=== PATIENT | female | born 2000 | race Caucasian/White ===

== ENCOUNTER 2022-07-04 05:00 | Emergency (ER) | payer OTHER ==
[2022-07-04] MEDS ORDERED: SODIUM CHLORIDE 0.9% 1,000 ML IV STA (05:32)
[2022-07-04] MEDS ORDERED: KETOROLAC 15 MG/ML VIAL IVP STA (05:32)
[2022-07-04] MEDS ORDERED: diphenhydrAMINE INJ 50 MG/ML VIAL IVP STA (05:33)
[2022-07-04] MEDS ORDERED: METOCLOPRAMIDE 10 MG/2 ML VIAL IVP STA (05:33)
[2022-07-04] MEDS ORDERED: ACETAMINOPHEN 325 MG TABLET PO STA (05:33)
[2022-07-04] MEDS ORDERED: SUMAtriptan 6 MG/0.5 ML VIAL SUBQ STA (05:36)
--- NOTE | 2022-07-04 05:37 | ED Physician Documentation ---
History of Present Illness - Stated complaint Stated Complaint: MIGRANE - Chief complaint Chief Complaint: Neuro - History obtained from History obtained from: Patient - Additonal information Additional information: 22-year-old woman with past medical history of depression, anxiety, ADHD, PTSD, noncompliant with medications, presents with intermittent headache with 1 or both eyes over the past week however occurring at least twice daily, increasing in severity and waking her from sleep most recently at 3 AM tonight. Patient states she is hyperalgesia with touching the area around the eye.Denies vision changes, focal neurological deficit. Review of Systems Constitutional: denies: Fever Eyes: reports: Photophobia. denies: Loss of vision Musculoskeletal: denies: Neck pain Neurologic: reports: Headache PD PAST MEDICAL HISTORY - Past Medical History Past Medical History: Yes Psych: Depression, Anxiety, Bipolar disorder, ADD/ADHD, Post traumatic stress disorder - Past Surgical History Past Surgical History: No - Present Medications Home Medications: Ambulatory Orders Medication Instructions Recorded Confirmed Fluoxetine HCl [Prozac] 40 mg PO DAILY 12/11/21 07/04/22 Verapamil [Calan] 80 mg PO TID #90 tablet 07/04/22 predniSONE [Prednisone 21-TAB dose 60 mg PO QDAC 6 Days #21 tab 07/04/22 pack] - Allergies Allergies/Adverse Reactions: Allergies Allergy/AdvReac Type Severity Reaction Status Date / Time No Known Drug Allergies Allergy Verified 07/04/22 05:18 - Social History Does the pt smoke?: No Smoking Status: Never smoker Does the pt drink ETOH?: Yes - Immunizations Immunizations are current?: Yes - POLST Patient has POLST: No PD ED PE NORMAL - Vitals Vital signs reviewed: Yes - General General: Alert and oriented X 3, No acute distress, Well developed/nourished - HEENT HEENT: Atraumatic, PERRL, EOMI, Moist mucous membranes, Pharynx benign - Neck Neck: Supple, no meningeal sign - Neuro Neuro: Alert and oriented X 3, retail special event associate 2-12 intact, No motor deficit, No sensory deficit, Normal speech Results - Vitals Vitals: Vital Signs - 24 hr 07/04/22 05:20 Temperature 37.1 C Heart Rate 70 Respiratory 16 Rate Blood Pressure 141/83 H O2 Saturation 99 Oxygen O2 Source Room air PD Medical Decision Making - ED course ED course: 22-year-old woman presents with symptoms concerning for cluster headache. Symptomatic care provided in the emergency department with improvement. Patient will be discharged home on steroid taper and verapamil for empiric treatment of cluster headache. Plan to follow-up with primary care provider. Return precautions given. Departure - Departure Clinical Impression: Cluster headache Condition: Stable Instructions: ED Headache Cluster Prescriptions: Verapamil [Calan] 80 mg PO TID #90 tablet predniSONE [Prednisone 21-TAB dose pack] 60 mg PO QDAC 6 Days #21 tab Comments: You are seen in the emergency department for cluster headache. Please follow-up with your primary care provider. Medications for cluster headache [place] [facility] [place] You should start to see an improvement within 2-3 weeks with verapamil. You should taper down on the verapamil over time before stopping it. Make sure that you follow-up with your primary care provider to discuss a plan for cluster headache management and medication management.
[2022-07-04 06:37] VITALS: BP 127/87
== END 2022-07-04 06:37 | disposition home or self-care (01) ==
LOC: ED 05:00
DX: G44.89 Other headache syndrome (principal)
CPT/HCPCS: 96372; 96374; 96375; 99283; A9270; J1200; J2765

== ENCOUNTER 2023-02-12 07:32 | Outpatient (CLI) | payer OTHER ==
[2023-02-12 08:00] LABS: BASOPHILS # (AUTO) 0.1 10^3/uL (0.0-0.1); BASOPHILS % (AUTO) 1.2 %; EOSINOPHILS # (AUTO) 0.2 10^3/uL (0.0-0.7); EOSINOPHILS % (AUTO) 2.4 %; HCT - HEMATOCRIT 40.8 % (37.0-47.0); HGB - HEMOGLOBIN 13.5 g/dL (12.0-16.0); LYMPHOCYTES % (AUTO) 38.2 %; MEAN CORPUSCULAR HEMOGLOBIN 27.6 pg (27.0-31.0); MEAN CORPUSCULAR HGB CONC 33.1 g/dL (32.0-36.0); MEAN CORPUSCULAR VOLUME 83.3 fL (81.0-99.0); MEAN PLATELET VOLUME 9.4 fL (7.9-10.8); MONOCYTES # (AUTO) 0.6 10^3/uL (0.0-1.0); MONOCYTES % (AUTO) 7.2 %; NEUTROPHILS % (AUTO) 50.7 %; PLT - PLATELET COUNT 322 10^3/uL (130-450); RED CELL DISTRIBUTION WIDTH 12.1 % (12.0-15.0); WHITE BLOOD COUNT 7.8 x10^3/uL (4.8-10.8)
[2023-02-12 08:16] LABS: GTT GLUCOSE,FASTING 103 mg/dL (74-109)
[2023-02-12 08:17] LABS: ALBUMIN 4.7 g/dL (3.2-5.5); ALBUMIN/GLOBULIN RATIO 1.6 (1.0-2.2); BILIRUBIN,TOTAL 0.7 mg/dL (0.2-1.0); CALCIUM 9.7 mg/dL (8.5-10.3); CREATININE 0.8 mg/dL (0.6-1.3); POTASSIUM 3.8 mmol/L (3.5-4.5); TOTAL PROTEIN 7.7 g/dL (6.4-8.9)
[2023-02-12 08:29] LABS: THYROID STIMULATING HORMONE 2.02 uIU/mL (0.34-5.60)
[2023-02-12 11:47] LABS: ESTIMATED AVERAGE GLUCOSE 100 mg/dL (70-100); HEMOGLOBIN A1c% 5.1 % (4.27-6.07)
== END 2023-02-12 07:33 | disposition home or self-care (01) ==
LOC: LAB 07:32
PROVIDERS: ATTEND Nurse Practitioner Obstetrics & Gynecology
DX: E28.2 Polycystic ovarian syndrome (principal); F41.9 Anxiety disorder, unspecified
CPT/HCPCS: 36415; 80053; 82951; 83036; 84403; 84439; 84443; 85025

== ENCOUNTER 2023-02-28 14:46 | Outpatient (CLI) | payer OTHER ==
--- NOTE | 2023-03-01 08:27 | Ultrasound Report ---
PROCEDURE: Pelvic w/Transvaginal INDICATIONS: DYSPAREUNIA TECHNIQUE: Real-time scanning was performed of the pelvic organs, with image documentation. Additional endovagi nal scanning was necessary due to incomplete visualization of the adnexal and endometrial structures by transabdominal scanning. COMPARISON: None. FINDINGS: Uterus: Uterus is anteverted and normal in size at 6.7 x 2.9 x 4.8 cm. The myometrium is homogeneou s. The endometrium measures 11.9 mm in combined thickness. Cervix is normal. Ovaries: The right ovary measures 3.3 x 2.0 x 3.1 cm, with a calculated ovarian volume of 10.6 cc. The left ovary measures 3.1 x 1.2 x 1.1 cm, with a calculated ovarian volume of 2.0 cc. The ovaries have a normal sonographic appearance. There is a 1.4 x 1.1 x 1.6 cm corpus luteal cyst in right ovar y. ? more than 12 follicles in each ovary. No adnexal masses are seen. No cystic lesions measuring g reater than 3 cm. Other: No pathologic free abdominal or pelvic fluid. IMPRESSION: 1. A cause for dysmenorrhea is not identified on ultrasound. 2. A corpus luteal cyst in the right ovary. 3. Question more than 12 ovarian follicles in each ovary. Reviewed by: Porter Brady MD on 03/01/2023 8:26 AM PDT Approved by: Porter Brady MD on 03/01/2023 8:26 AM PDT Station ID: [id number]
== END 2023-02-28 14:47 | disposition home or self-care (01) ==
LOC: DI 14:46
PROVIDERS: ATTEND Nurse Practitioner Obstetrics & Gynecology
DX: N94.10 Unspecified dyspareunia (principal); N92.0 Excessive and frequent menstruation with regular cycle; E28.2 Polycystic ovarian syndrome; N83.11 Corpus luteum cyst of right ovary

== ENCOUNTER 2023-05-30 12:32 | Emergency (ER) | payer OTHER ==
[2023-05-30] MEDS ORDERED: KETOROLAC 30 MG/ML VIAL IVP STA (12:54)
[2023-05-30 13:06] LABS: BASOPHILS # (AUTO) 0.1 10^3/uL (0.0-0.1); EOSINOPHILS # (AUTO) 0.1 10^3/uL (0.0-0.7); EOSINOPHILS % (AUTO) 1.1 %; HCT - HEMATOCRIT 42.1 % (37.0-47.0); HGB - HEMOGLOBIN 13.6 g/dL (12.0-16.0); LYMPHOCYTES # (AUTO) 3.2 10^3/uL (1.5-3.5); LYMPHOCYTES % (AUTO) 33.7 %; MEAN CORPUSCULAR HGB CONC 32.3 g/dL (32.0-36.0); MEAN CORPUSCULAR VOLUME 83.5 fL (81.0-99.0); MEAN PLATELET VOLUME 9.6 fL (7.9-10.8); MONOCYTES # (AUTO) 0.7 10^3/uL (0.0-1.0); MONOCYTES % (AUTO) 7.2 %; NEUTROPHILS # (AUTO) 5.3 10^3/uL (1.5-6.6); NEUTROPHILS % (AUTO) 56.9 %; PLT - PLATELET COUNT 336 10^3/uL (130-450); RED BLOOD COUNT 5.04 10^6/uL (4.20-5.40); RED CELL DISTRIBUTION WIDTH 12.6 % (12.0-15.0); WHITE BLOOD COUNT 9.4 x10^3/uL (4.8-10.8)
[2023-05-30] MEDS ORDERED: SODIUM CHLORIDE 0.9% 1,000 ML IV STA (13:42)
[2023-05-30 13:47] LABS: CALCIUM 9.4 mg/dL (8.5-10.3); CREATININE 0.9 mg/dL (0.6-1.3); POTASSIUM 3.4 mmol/L (3.5-4.5)
[2023-05-30] MEDS ORDERED: MORPHINE 2 MG/ML CARPUJECT IVP STA (13:49)
[2023-05-30 14:26] LABS: BILIRUBIN,URINE NEGATIVE (NEGATIVE); GLUCOSE, URINE (UA) NEGATIVE (NEGATIVE); KETONES,URINE (UA) TRACE mg/dL (NEGATIVE); LEUKOCYTE ESTERASE, URINE NEGATIVE (NEGATIVE); NITRITE,URINE NEGATIVE (NEGATIVE); OCCULT BLOOD,URINE NEGATIVE (NEGATIVE); PH,URINE 6.5 PH (5.0-7.5); PROTEIN,URINE NEGATIVE (NEGATIVE); UROBILINOGEN,URINE 0.2 (NORMAL) E.U./dL (NORMAL)
[2023-05-30 14:27] LABS: CLARITY,URINE CLEAR (CLEAR)
[2023-05-30 14:28] LABS: HCG UR QUAL NEGATIVE
--- NOTE | 2023-05-30 15:34 | Ultrasound Report ---
PROCEDURE: Pelvic w/Transvaginal INDICATIONS: left sided pain/IUD placed 1 week ago/cramping TECHNIQUE: Real-time scanning was performed of the pelvic organs, with image documentation. Additional endovagi nal scanning was necessary due to incomplete visualization of the adnexal and endometrial structures by transabdominal scanning. COMPARISON: 02/28/2023 FINDINGS: Uterus: Uterus is anteverted and normal in size at 7.0 x 2.9 x 4.7 cm. The myometrium is homogeneou s. The endometrium measures 12.8 mm in combined thickness. An IUD is in satisfactory position Ovaries: The right ovary measures 1.6 x 1.9 x 1.5 cm, with a calculated ovarian volume of 2.2 cc. T he left ovary measures 3.8 x 1.9 x 1.5 cm, with a calculated ovarian volume of 5.6 cc. The ovaries h ave a normal sonographic appearance. Less than 12 follicles can be seen in each ovary. No adnexal m asses are seen. No cystic lesions measuring greater than 3 cm. There is bilateral intraovarian flow. Other: No pathologic free abdominal or pelvic fluid. IMPRESSION: 1. IUD in satisfactory position. 2. No other significant findings. Reviewed by: Angelito Flores MD on 05/30/2023 3:33 PM PST Approved by: Angelito Flores MD on 05/30/2023 3:33 PM PST Station ID: [id number]
[2023-05-30 15:48] VITALS: BP 142/75
[2023-05-30] MEDS ORDERED: POTASSIUM BICARB 25 MEQ TABLET PO ONE (15:48)
--- NOTE | 2023-05-30 15:50 | ED Physician Documentation ---
PD HPI FEMALE - Stated complaint Stated Complaint: - Chief complaint Chief Complaint: Abd Pain - History obtained from History obtained from: Patient - Additional information Additional information: Patient is a 22-year-old female presenting for evaluation of lower abdominal cramps that been present for the last few hours. Patient Had an IUD placed 1 week ago. She does have a history of PCOS. She reports having increased cramping sensation to the left adnexa. She has tried Tylenol without improvement. Mild vaginal bleeding. No vaginal discharge. Denies concerns for STDs. IUD was placed by nurse credit checker Dora Huber. Review of Systems Constitutional: denies: Fever Cardiac: denies: Chest pain / pressure Respiratory: denies: Dyspnea GI: denies: Abdominal Pain, Vomiting : reports: Dysuria, Vaginal bleeding. denies: Hematuria PD PAST MEDICAL HISTORY - Past Medical History Past Medical History: Yes Cardiovascular: None Respiratory: None Neuro: None Endocrine/Autoimmune: None GI: None MANAGER KNOWLEDGE: None : None HEENT: None Psych: Depression, Anxiety, Bipolar disorder, ADD/ADHD, Post traumatic stress disorder Musculoskeletal: None Derm: None - Past Surgical History Past Surgical History: No - Present Medications Home Medications: Ambulatory Orders Medication Instructions Recorded Confirmed HYDROcod/ACETAM 5/325 [[place] 5/325] 1 tablet PO Q6H PRN #6 tablet 05/30/23 - Allergies Allergies/Adverse Reactions: Allergies Allergy/AdvReac Type Severity Reaction Status Date / Time No Known Drug Allergies Allergy Verified 05/30/23 12:41 - Social History Does the pt smoke?: No Smoking Status: Never smoker Does the pt drink ETOH?: Yes Does the pt have substance abuse?: No - Immunizations Immunizations are current?: Yes - POLST Patient has POLST: No PD ED PE NORMAL - General General: Alert and oriented X 3, No acute distress, Well developed/nourished - HEENT HEENT: Atraumatic, Moist mucous membranes, Pharynx benign - Neck Neck: Supple, no meningeal sign - Cardiac Cardiac: RRR, Strong equal pulses - Respiratory Respiratory: No respiratory distress, Clear bilaterally - Abdomen Abdomen: Normal bowel sounds, Soft, Non tender, Non distended - Female Female : Softball Umpire present (Chaperoned by Ruth, normal-appearing cervix with no visible IUD strings, no CMT, small amount of vaginal discharge that is clear and bloody, No significant adnexal tenderness) - Derm Derm: Warm and dry - Neuro Neuro: Normal speech Results - Vitals Vitals: Vital Signs - 24 hr 05/30/23 05/30/23 05/30/23 12:33 13:53 15:46 Temperature 36.4 C L Heart Rate 76 78 66 Respiratory 16 20 16 Rate Blood Pressure 108/55 L 136/74 H 142/75 H O2 Saturation 100 98 98 05/30/23 15:58 Temperature Heart Rate 72 Respiratory 17 Rate Blood Pressure 142/75 H O2 Saturation 99 Oxygen O2 Source Room air - Labs Labs: Laboratory Tests 05/30/23 05/30/23 05/30/23 13:00 13:00 14:20 WBC 9.4 RBC 5.04 Hgb 13.6 Hct 42.1 MCV 83.5 MCH 27.0 MCHC 32.3 RDW 12.6 Plt Count 336 MPV 9.6 Neut # (Auto) 5.3 Lymph # (Auto) 3.2 [place] # (Auto) 0.7 Eos # (Auto) 0.1 Baso # (Auto) 0.1 Absolute Nucleated RBC 0.00 Nucleated RBC % 0.0 Sodium 138 Potassium 3.4 L Chloride 105 Carbon Dioxide 24 Anion Gap 9.0 BUN 8 Creatinine 0.9 Estimated GFR (MDRD) 79 L Glucose 88 Calcium 9.4 Urine Color LIGHT YELLOW Urine Clarity CLEAR Urine pH 6.5 Ur Specific [place] <=1.005 Urine Protein NEGATIVE Urine Glucose (UA) NEGATIVE Urine Ketones TRACE Urine Occult Blood NEGATIVE Urine Nitrite NEGATIVE Urine Bilirubin NEGATIVE Urine Urobilinogen 0.2 (NORMAL) Ur Leukocyte Esterase NEGATIVE Ur Microscopic Review NOT INDICATED Urine Culture Comments NOT INDICATED Urine HCG, Qual NEGATIVE Chlam trachomat DNA PCR N.gonorrhoeae DNA (PCR) T. vaginalis (PCR) 05/30/23 14:20 WBC RBC Hgb Hct MCV MCH MCHC RDW Plt Count MPV Neut # (Auto) Lymph # (Auto) [place] # (Auto) Eos # (Auto) Baso # (Auto) Absolute Nucleated RBC Nucleated RBC % Sodium Potassium Chloride Carbon Dioxide Anion Gap BUN Creatinine Estimated GFR (MDRD) Glucose Calcium Urine Color Urine Clarity Urine pH Ur Specific [place] Urine Protein Urine Glucose (UA) Urine Ketones Urine Occult Blood Urine Nitrite Urine Bilirubin Urine Urobilinogen Ur Leukocyte Esterase Ur Microscopic Review Urine Culture Comments Urine HCG, Qual Chlam trachomat DNA PCR NEGATIVE N.gonorrhoeae DNA (PCR) NEGATIVE T. vaginalis (PCR) TNP PD Medical Decision Making - ED course Complexity details: reviewed results, re-evaluated patient, d/w patient ED course: Patient is a 22-year-old female presenting for evaluation of a pelvic pain. Had an IUD placed a week ago. Has mild tenderness noted on exam. On pelvic exam I am unable to visualize IUD string. No CMT or signs of PID on exam. Labs including CBC, chemistry, urinalysis were obtained and reviewed. Potassium of 3.4 and given p.o. replacement. An ultrasound was obtained which shows IUD in place as well as good flow to bilateral ovaries. She is feeling better here after Toradol and a dose of IV morphine. She has a follow-up appointment with Dora Huber on Sunday. She is counseled regarding continued supportive care as well as concerning symptoms to return for. Departure - Departure Disposition: Home, Self Care Clinical Impression: Pelvic pain in female Condition: Stable Instructions: ED Pelvic Pain [facility] Follow-Up: Dora Huber, JULI, CERTIFIED COATINGS INSPECTOR [Provider Admit Priv/Credential] - Prescriptions: HYDROcod/ACETAM 5/325 [[place] 5/325] 1 tablet PO Q6H PRN #6 tablet PRN Reason: Pain Comments: You were evaluated for pain in your pelvic region. The ultrasound does show that your IUD is in place and there is good blood flow to both of your ovaries. On pelvic exam I was not able to see the strings but it is reassuring to know from the ultrasound that your IUD is in place. Your labs are overall reassuring. Potassium level was slightly low so we did give you potassium replacement today. I did also obtain cultures from vaginal discharge on your exam. We will notify you of any abnormal results. I have sent a small amount of narcotic pain medication to [facility] in [place]. However I would recommend starting with ibuprofen 600 mg every 6 hours as needed for pain. Please keep your appointment on Sunday for follow-up with your regulatory compliance engineer. I am prescribing a short course of narcotic pain medication for you. These are potentially dangerous and addictive medications that should be used carefully. These medications may constipate you. Take an getz-fjf-fmjlgys stool softener (docusate) twice daily with plenty of water while taking these medications. If you go 24 hours without a bowel movement, take hybo-[id number]-[id number] miralax, per package instructions. Do not drink or drive while taking these medications. If you received narcotic or sedating medications while in the emergency department, do not drive for 24 hours. Store this medication in a safe, secure place and out of reach of children. It is a violation of federal law to give or sell this medication to another person or to use in a manner other than prescribed. The ED will not refill narcotic prescriptions, including prescriptions lost or stolen. To dispose of unwanted medications: 1. [facility] [address] in [place] has a medication drop box. They accept prescription medications (in pill form) Sunday through Sunday 9:00 a.m. to 5:00 p.m. 2. The [facility] [employer] accepts prescription medications (in pill form only) for disposal year round. Call for more information. 3. Contact the [facility] for the next [facility] sponsored prescription drug collection event. , [phone], or [phone]; Note that many narcotic pain relievers also contain Tylenol/acetaminophen. Please ensure that your total dose of acetaminophen from all sources does not exceed 3 g (3000 mg) per day. Forms: PCP List Discharge Date/Time: 05/30/23 15:59
[2023-05-30 16:07] VITALS: O2SAT 99
[2023-05-30 16:45] LABS: CHLAMYDIA TRACHOMATIS DNA NEGATIVE (NEGATIVE); NEISSERIA GONORRHOEAE DNA NEGATIVE (NEGATIVE)
[2023-05-30 19:24] LABS: BACTERIAL VAGINOSIS DNA NEGATIVE (NEGATIVE); CANDIDA GLABRATA DNA NEGATIVE (NEGATIVE); CANDIDA GROUP DNA NEGATIVE (NEGATIVE); CANDIDA KRUSEI DNA NEGATIVE (NEGATIVE); TRICHOMONAS VAGINALIS DNA NEGATIVE (NEGATIVE)
== END 2023-05-30 15:59 | disposition home or self-care (01) ==
LOC: ED 12:32
DX: R10.2 Pelvic and perineal pain (principal)
CPT/HCPCS: 36415; 76830; 76856; 80048; 81003; 81025; 81514; 85025; 87491; 87591; 96374; 96375; 99284; A9270; 81001; 87086; 87661

== ENCOUNTER 2023-06-02 21:52 | Emergency (ER) | payer OTHER ==
--- NOTE | 2023-06-02 22:04 | ED Physician Documentation ---
PD HPI FEMALE - Stated complaint Stated Complaint: ABD PX - Chief complaint Chief Complaint: Abd Pain - History obtained from History obtained from: Patient - Additional information Additional information: 22-year-old female presents for suprapubic pain. Patient was seen here several days ago for same, states that the pain started after IUD placement earlier in the week. She was told to follow-up with her VERIFYING MACHINE OPERATOR, however her VERIFYING MACHINE OPERATOR canceled the appointment and she continues to be in pain. She was given [place] by the previous ER provider, but she says that it makes her sick and shaky. She took a leftover oxycodone-acetaminophen tablet that her had at home and that seemed to help her pain somewhat. She states that the pain is causing her distress and she does not want her IUD anymore. She is requesting that we remove the IUD. Review of Systems Constitutional: denies: Fever, Chills GI: reports: Abdominal Pain. denies: Nausea, Vomiting, Constipation, Diarrhea : denies: Dysuria, Frequency, Hesitancy, LMP, Vaginal bleeding, Irregular menses PD PAST MEDICAL HISTORY - Past Medical History Past Medical History: Yes Cardiovascular: None Respiratory: None Neuro: None Endocrine/Autoimmune: None GI: None EVS TECH: None : None HEENT: None Psych: Depression, Anxiety, Bipolar disorder, ADD/ADHD, Post traumatic stress disorder Musculoskeletal: None Derm: None - Past Surgical History Past Surgical History: No - Present Medications Home Medications: Ambulatory Orders Medication Instructions Recorded Confirmed HYDROcod/ACETAM 5/325 [[place] 5/325] 1 tablet PO Q6H PRN #6 tablet 05/30/23 06/02/23 Oxycodone HCl/Acetaminophen 1 each PO Q6H PRN #10 tablet 06/02/23 [Percocet 5-325 mg Tablet] - Allergies Allergies/Adverse Reactions: Allergies Allergy/AdvReac Type Severity Reaction Status Date / Time No Known Drug Allergies Allergy Verified 06/02/23 21:55 - Social History Does the pt smoke?: No Smoking Status: Never smoker Does the pt drink ETOH?: Yes Does the pt have substance abuse?: No - Immunizations Immunizations are current?: Yes - POLST Patient has POLST: No PD ED PE NORMAL - Vitals Vital signs reviewed: Yes - General General: Alert and oriented X 3, No acute distress, Well developed/nourished - Abdomen Abdomen: Soft, Non distended - Female Female : Snake Charmer present, Other (Cervix normal, clear discharge from os. No IUD strings identified) - Neuro Neuro: Alert and oriented X 3, paver installer 2-12 intact, No motor deficit, Normal speech Results - Vitals Vitals: Vital Signs - 24 hr 06/02/23 06/02/23 21:55 23:33 Temperature 36.8 C Heart Rate 88 88 Respiratory 16 16 Rate Blood Pressure 122/90 H 122/90 H O2 Saturation 100 100 Oxygen O2 Source Room air PD Medical Decision Making - ED course Complexity details: reviewed results, re-evaluated patient, considered differential, d/w patient ED course: Patient requesting removal of her IUD. Records from patient's visit 2 days prior reviewed, ultrasound confirms correct placement of IUD, however on speculum exam despite excellent visualization of the cervix and the cervical os I am unable to identify any strings to remove the IUD. Unable to remove IUD at this time. Patient was counseled that she would need to continue to follow-up with VERIFYING MACHINE OPERATOR for removal of her IUD. She requested different pain medications, short course sent to the pharmacy of choice. Departure - Departure Disposition: 01 Home, Self Care Clinical Impression: IUD complication Condition: Stable Instructions: Control IUD Prescriptions: Oxycodone HCl/Acetaminophen [Percocet 5-325 mg Tablet] 1 each PO Q6H PRN #10 tablet PRN Reason: pain Comments: I was unable to visualize the strings of your IUD from your cervix. Ultrasound from several days ago confirmed that the IUD was in place, however we are unable to remove it here in the emergency department. Please follow-up with your VERIFYING MACHINE OPERATOR for removal of this device. Forms: PCP List Discharge Date/Time: 06/02/23 23:33
[2023-06-02 22:07] VITALS: BP 122/90; O2SAT 100
[2023-06-02] MEDS ORDERED: KETOROLAC 30 MG/ML VIAL IM STA (22:15)
== END 2023-06-02 23:33 | disposition home or self-care (01) ==
LOC: ED 21:52
DX: T83.84XA Pain due to genitourinary prosthetic devices, implants and grafts, initial encounter (principal)
CPT/HCPCS: 96372; 99283; 99284